=== PATIENT | female | born 1940 | race Caucasian/White ===

== ENCOUNTER 2022-11-03 09:45 | Outpatient (CLI) | payer MEDICARE, SELFPAY | END 2022-11-03 09:46 | disposition home or self-care (01) | LOC: DIORS 09:46 | PROVIDERS: PCP Family Medicine; Visit Provider Student in an Organized Health Care Education/Training Program | DX: T84.84XA Pain due to internal orthopedic prosthetic devices, implants and grafts, initial encounter (principal); Z96.651 Presence of right artificial knee joint; M17.12 Unilateral primary osteoarthritis, left knee; M25.59 Pain in other specified joint | CPT/HCPCS: 20610; 99203; J1040 ==